=== PATIENT | female | born 1995 | race Caucasian/White ===

== ENCOUNTER 2020-10-21 14:05 | Emergency (ER) | payer OTHER ==
[~2020-10-21 14:05] MED LIST: AUGMENTIN 875-1 EACH PO; BENTYL 10MG CAP10 MG PO; COLACE 100MG C100 MG PO; EXPECTORANT200 MG PO; FLONASE 0.05% N16 GM; IBUPROFEN600 MG PO; KEFLEX CAP 500500 MG PO; NORCO 5-325 TA1 EACH PO; ZOFRAN4 MG PO
[2020-10-21 15:49] LABS: HEMOGLOBIN 15.7 gm/dl (12.3-15.3); RED BLOOD COUNT 4.86 M/UL (4.00-5.10); WHITE BLOOD COUNT 14.7 K/UL (4.5-11.0)
[2020-10-21 16:17] LABS: BUN/CREATININE RATIO 21 (0-10)
[2020-10-21] MEDS ORDERED: CEPHALEXIN500 M1 PO (17:15)
[2020-10-21] MEDS ORDERED: ONDANSETRON ODT4 MG SL (17:15)
== END 2020-10-21 17:55 | disposition home or self-care (01) ==
LOC: ER1 14:05
PROVIDERS: Physician Assistant
DX: N39.0 Urinary tract infection, site not specified (principal); R19.7 Diarrhea, unspecified; R10.11 Right upper quadrant pain; J45.909 Unspecified asthma, uncomplicated; F17.200 Nicotine dependence, unspecified, uncomplicated; Z79.899 Other long term (current) drug therapy; Z98.890 Other specified postprocedural states; Z88.8 Allergy status to other drugs, medicaments and biological substances
CPT/HCPCS: 36415; 80053; 81001; 83690; 84703; 85025; 96374; 99284; J0696; J2405; J2550; J7030; Q9967

== ENCOUNTER 2021-12-05 11:33 | Emergency (ER) | payer OTHER ==
[~2021-12-05 11:33] MED LIST changes: +CEPHALEXIN500 M1 PO; +ONDANSETRON ODT4 MG SL
[2021-12-05 12:33] LABS: HEMOGLOBIN 13.7 gm/dl (12.3-15.3); RED BLOOD COUNT 4.28 M/UL (4.00-5.10); WHITE BLOOD COUNT 4.7 K/UL (4.5-11.0)
[2021-12-05 12:53] LABS: BUN/CREATININE RATIO 8 (0-10)
== END 2021-12-05 14:23 | disposition left against medical advice (07) ==
LOC: ER1 11:33
DX: Z53.21 Procedure and treatment not carried out due to patient leaving prior to being seen by health care provider (principal)
CPT/HCPCS: 80053; 81001; 83690; 85025

== ENCOUNTER 2021-12-06 09:27 | Emergency (ER) | payer OTHER ==
[2021-12-06 10:04] LABS: HEMOGLOBIN 13.1 gm/dl (12.3-15.3); RED BLOOD COUNT 4.1 M/UL (4.00-5.10)
[2021-12-06 10:22] LABS: BUN/CREATININE RATIO 11 (0-10)
== END 2021-12-06 12:43 | disposition home or self-care (01) ==
LOC: ER1 09:27
PROVIDERS: Physician Assistant
DX: K62.5 Hemorrhage of anus and rectum (principal); F17.200 Nicotine dependence, unspecified, uncomplicated; Z88.8 Allergy status to other drugs, medicaments and biological substances
CPT/HCPCS: 80053; 81001; 82272; 83690; 84703; 85025; 99284; Q9967